=== PATIENT | female | born 1955 | race Caucasian/White ===

== ENCOUNTER 2018-11-11 15:05 | Emergency (ER) | payer OTHER ==
[~2018-11-11] VITALS: Ht 160 cm; Wt 67.1 kg
[2018-11-11 15:05] VITALS: BP 132/93
[~2018-11-11 15:05] MED LIST: IBUP-974 PO
--- NOTE | 2018-11-11 15:05 | NUR ---
PATIENT AMBULATED TO ER BED 11.
--- NOTE | 2018-11-11 15:18 | NUR ---
C/O COUGH FOR 24 DAYS THAT HAS GOTTEN WORSE IN THE LAST 2 DAYS. LUNG SOUNDS CLEAR BILAT, O2 SAT 99% RA DENIES N/V/D; SKIN IS PINK/WARM/DRY; AAOX4 WITH EVEN AND STEADY GAIT; LUNGS CLEAR BL; HR TACHY AT 115, ERMD AWARE. PATIENT STATES GENERALIZED PAIN OF 10/10 AT THIS TIME; VSS; PATIENT POSITIONED FOR COMFORT; HOB ELEVATED; BEDRAILS UP X1; BED DOWN. ER MD MADE AWARE OF PT STATUS.
--- NOTE | 2018-11-11 15:18 | NUR ---
PT PLACED ON INSTITUTION DIRECTOR
--- NOTE | 2018-11-11 15:25 | NUR ---
ERMD AT BEDSIDE
[2018-11-11] MEDS ORDERED: ACETAMIN/CODEINE 120/12MG-5ML 5 ML UDC PO ONE (15:30)
--- NOTE | 2018-11-11 15:39 | NUR ---
XRAY AT BEDSIDE
[2018-11-11] MEDS ORDERED: predniSONE 20 MG TAB PO ONE (16:10)
[2018-11-11 16:30] VITALS: BP 128/90
--- NOTE | 2018-11-11 16:30 | NUR ---
Patient discharged with v/s stable. Written and verbal after care instructions given and explained. Patient alert, oriented and verbalized understanding of instructions. Ambulatory with steady gait. All questions addressed prior to discharge. ID band removed. Patient advised to follow up with PMD. Rx of PREDNISONE, SUDAFED AND GUAIATUSSIN given. Patient educated on indication of medication including possible reaction and side effects. Opportunity to ask questions provided and answered.
== END 2018-11-11 16:30 | disposition home or self-care (01) ==
LOC: MED 15:05
DX: J20.9 Acute bronchitis, unspecified (principal); R11.0 Nausea; Z79.899 Other long term (current) drug therapy; Z88.2 Allergy status to sulfonamides
CPT/HCPCS: 71045; 99283; J7512; Q0092

== ENCOUNTER 2019-01-14 01:50 | Emergency (ER) | payer OTHER ==
[~2019-01-14] VITALS: Ht 160 cm; Wt 68.0 kg
[2019-01-14 01:53] VITALS: BP 124/74
--- NOTE | 2019-01-14 01:56 | NUR ---
TO LOBBY A/W BED, AMBULATORY
--- NOTE | 2019-01-14 02:39 | NUR ---
PT TAKEN TO BED 10.
[2019-01-14] MEDS ORDERED: DIAZEPAM 5 MG TAB PO ONE (02:55)
[2019-01-14] MEDS ORDERED: KETOROLAC 30 MG/ML VIAL IM ONE (02:55)
--- NOTE | 2019-01-14 02:55 | NUR ---
63 YO F BIB SELF AND PRESENTS TO ED C/O 04/23 RIGHT BURNING SHOULDER PAIN THAT RADIATES INTO MIDDLE BACK X 10 DAYS. PT DENIES ANY RECENT TRAUMA OR INJURY. PT IS UNABLE TO ABDUCT ARM. -- FINGER ROM IN TACT. CAP REFILL BRISK, LESS THAN 3 SECONDS. RADIAL PULSES EQUAL, STRONG. -- PT APPEARS CALM. IS COOPERATIVE, ANSWERS QUESTIONS APPROPRIATELY, BEHAVIOR APPROPRIATE. -- SKIN PINK, WARM, DRY. BREATHING EVEN, UNLABORED. PMH-- DENIES RX-- NORCO AND TYLENOL AT 2200
--- NOTE | 2019-01-14 03:05 | NUR ---
PT RECEIVED 5 MG PO VALIUM AND 30 MG IM TORADOL FOR 10/10 RIGHT SHOULDER PAIN. WILL CONTINUE TO MONITOR FOR EFFECTIVENESS.
--- NOTE | 2019-01-14 03:25 | NUR ---
SLING APPLIED BY EMT. TEACHING PROVIDED AND REINFORCED BY RN AND EMT.
--- NOTE | 2019-01-14 03:30 | NUR ---
PT REPORTS 6/10 SHOULDER PAIN. MEDICATION EFFECTIVE.
[2019-01-14 03:34] VITALS: BP 119/68
--- NOTE | 2019-01-14 03:34 | NUR ---
Patient discharged with v/s stable. Written and verbal after care instructions given and explained. Patient alert, oriented and verbalized understanding of instructions. Ambulatory with steady gait. All questions addressed prior to discharge. ID band removed. Patient advised to follow up with PMD. Rx of Naprosyn and Valium given. Patient educated on indication of medication including possible reaction and side effects. Opportunity to ask questions provided and answered.
== END 2019-01-14 03:34 | disposition home or self-care (01) ==
LOC: MED 01:50
DX: M75.101 Unspecified rotator cuff tear or rupture of right shoulder, not specified as traumatic (principal); Z88.2 Allergy status to sulfonamides; Z79.1 Long term (current) use of non-steroidal anti-inflammatories (NSAID)
CPT/HCPCS: 73030; 96372; 99283; J1885; Q0092

== ENCOUNTER 2019-07-22 11:48 | Emergency (ER) | payer OTHER ==
[~2019-07-22] VITALS: Ht 152.4 cm; Wt 69.9 kg
[2019-07-22 11:57] VITALS: BP 141/77
--- NOTE | 2019-07-22 12:02 | NUR ---
Patient ambulated to bed 4. RN evaluating patient at bedside.
--- NOTE | 2019-07-22 12:05 | NUR ---
Dr. Julian is evaluating the patient at bedside.
[2019-07-22] MEDS ORDERED: KETOROLAC 60 MG/2 ML VIAL IM ONE (12:15)
--- NOTE | 2019-07-22 12:15 | NUR ---
64/F presents to ED with complaints of lower back pain x3 months. Patient states she has had on going back pain intermentlly. Denies injury or fall. Pt c/o 10/10 lower back pain radiating down right leg. Pt also c/o tingling sensation to right leg when she has severe pain. Patient noted with facial grimacing and limited ROM. Pt c/o worsening pain with changing positions. Pt placed in a position of comfort, offered patient a blanket. All needs addressed.
--- NOTE | 2019-07-22 12:52 | NUR ---
Pt expresses feeling better, pain reduced to 4/10. Pt sitting upright in bed, smiling and requesting to go home. Pt states "I feel better and would like to go home and rest." Dr. Julian made aware.
--- NOTE | 2019-07-22 13:05 | NUR ---
NADR ,PAIN 11/21.
[2019-07-22 13:08] VITALS: BP 134/91
--- NOTE | 2019-07-22 13:08 | NUR ---
Patient discharged with v/s stable pain at 11/21. Written and verbal after care instructions given and explained regarding chronic back pain. Patient verbalized understanding. Ambulatory with steady gait. All questions addressed prior to discharge. Advised to follow up with PMD.
== END 2019-07-22 13:08 | disposition home or self-care (01) ==
LOC: MED 11:48
DX: M54.5 Low back pain (principal); M54.2 Cervicalgia; G89.29 Other chronic pain; R03.0 Elevated blood-pressure reading, without diagnosis of hypertension; Z79.899 Other long term (current) drug therapy; Z88.2 Allergy status to sulfonamides
CPT/HCPCS: 96372; 99283; J1885

== ENCOUNTER 2019-08-21 11:15 | Emergency (ER) | payer OTHER ==
[~2019-08-21] VITALS: Ht 152.4 cm; Wt 68.5 kg
[2019-08-21 11:22] VITALS: BP 120/66
--- NOTE | 2019-08-21 11:30 | NUR ---
PT AMB TO BED 11 WITH STEADY GAIT
--- NOTE | 2019-08-21 11:41 | NUR ---
64 Y/O FEMALE C/O LT EAR PAIN X 4 DAYS. PAIN RADIATES TO LT JAW. DENIES DRAINAGE OR FEVER. 8/10 CONSTANT ACHING. STATES NO DIFFICULTY HEARING. TOOK TYLENOL AT 0600 WITH SLIGHT PAIN RELIEF. RR EVEN AND UNLABORED. PT LAYING IN BED, X 1 SIDE RAIL RAISED. BED LOCKED AND IN LOW POSITION. VSS. MEDHX: DENIES ALLERGIES: SULFA
--- NOTE | 2019-08-21 11:48 | NUR ---
DR MEDRANO AT BEDSIDE EXAMINING PT
[2019-08-21 11:53] VITALS: BP 120/66
== END 2019-08-21 11:54 | disposition home or self-care (01) ==
LOC: MED 11:15
DX: H66.92 Otitis media, unspecified, left ear (principal); Z79.1 Long term (current) use of non-steroidal anti-inflammatories (NSAID); Z88.2 Allergy status to sulfonamides
CPT/HCPCS: 99283

== ENCOUNTER 2022-04-09 20:51 | Emergency (ER) | payer OTHER ==
[~2022-04-09] VITALS: Ht 154.9 cm; Wt 72.1 kg
[2022-04-09 21:15] VITALS: BP 140/90
--- NOTE | 2022-04-09 21:18 | NUR ---
TO LOBBY A/W BED AMBULATORY
--- NOTE | 2022-04-09 21:28 | NUR ---
PT AMBULATED TO BED #6
--- NOTE | 2022-04-09 21:29 | NUR ---
Patient being evaluated by physician at bedside.
[2022-04-09] MEDS ORDERED: PANTOPRAZOLE 40 MG INJ VIAL IVP ONE (21:40)
[2022-04-09] MEDS ORDERED: NACL 0.9% 1,000 ML IV SCH (21:40)
[2022-04-09] MEDS ORDERED: MORPHINE SULFATE 2 MG/ML SYR IVP ONE (21:40)
[2022-04-09] MEDS ORDERED: ONDANSETRON 4 MG/2 ML VIAL IVP ONE (21:40)
--- NOTE | 2022-04-09 21:50 | NUR ---
IV ESTABLISHED 20G RIGHT AC
[2022-04-09 21:57] LABS: BASOPHILS % (AUTO) 0.4 % (0.0-2.0); EOSINOPHILS % (AUTO) 0.2 % (0.0-4.0); HEMATOCRIT 38.6 % (36-48); HEMOGLOBIN 12.9 g/dL (12.0-16.0); LYMPHOCYTES # (AUTO) 2.8 K/uL (2.5-16.5); LYMPHOCYTES % (AUTO) 22.4 % (20.5-51.1); MEAN CORPUSCULAR HEMOGLOBIN 29 pg (27-31); MEAN CORPUSCULAR HGB CONC 33 g/dL (33-37); MONOCYTES % (AUTO) 8.1 % (1.7-9.3); NEUTROPHILS # (AUTO) 8.5 K/uL (1.8-7.7); NEUTROPHILS % (AUTO) 68.9 % (42.2-75.2); PLATELET COUNT (AUTO) 512 K/uL (140-450); RED BLOOD CELL COUNT(AUTO) 4.49 MIL/uL (4.20-5.40); RED CELL DISTRIBUTION WIDTH 14.5 % (11.6-13.7); WHITE BLOOD COUNT (AUTO) 12.4 K/uL (4.8-10.8)
[2022-04-09 22:13] LABS: ALBUMIN 3.7 g/dL (3.4-5.0); ANION GAP 12.4 (8-16); CARBON DIOXIDE 27.6 mmol/L (21-32); CREATININE 0.7 mg/dL (0.6-1.3); TOTAL BILIRUBIN 0.2 mg/dL (0.0-1.0)
--- NOTE | 2022-04-09 22:30 | NUR ---
66/F BIB SELF C/C ABD PAIN 10/10 [id number]. PER PATIENT SHE ATE RICE AND MILK AND THE PAIN STARTED. PATIENT TOOK OMEPRAZOLE, CARBONATED DRINK, AND ZOFRAN AT HOME PRIOR TO ARRIVAL WITH NO RELIEF. ANDREWETMckenna STATED SHE FEELS LIKE THERE IS PRESSURE "PULLING" MY STOMACH. PATIETN IS GURDING ABDOMEN. RR APPEAR TO BE EVEN AND UNLABORED. PATIENT PLACED IN GOWN. PATIENT BED LOW AND LOCKED. SERA SIDE RAILS FOR SAFETY. ALL NEEDS MET. PMHX OARTHRITIS ALLERGIES SULFA
[2022-04-10] MEDS ORDERED: PANT40EC PO (05:41)
--- NOTE | 2022-04-10 06:07 | NUR ---
IV removed, catheter intact and site benign. Applied folded 4x4 gauze and tape to stop bleeding.
[2022-04-10 06:08] VITALS: BP 137/85
--- NOTE | 2022-04-10 06:08 | NUR ---
Patient discharged with v/s stable. Written and verbal after care instructions given ABD PAIN and explained. Patient alert, oriented and verbalized understanding of instructions. Ambulatory with steady gait. All questions addressed prior to discharge. ID band removed. Patient advised to follow up with PMD. Rx of PROTONIX given.
--- NOTE | 2022-04-10 06:10 | NUR ---
The patient's care was reviewed and supervised by Yumiko Martin RN.
== END 2022-04-10 06:08 | disposition home or self-care (01) ==
LOC: MED 20:51
DX: R10.84 Generalized abdominal pain (principal); R11.2 Nausea with vomiting, unspecified; Z79.899 Other long term (current) drug therapy; Z88.2 Allergy status to sulfonamides; Z87.442 Personal history of urinary calculi
CPT/HCPCS: 74176; 76705; 80053; 83690; 84484; 85025; 93005; 96361; 96374; 96375; 99285; C9113; J2270; J2405; Q0092; J7030

== ENCOUNTER 2022-06-17 19:35 | Emergency (ER) | payer OTHER ==
[~2022-06-17] VITALS: Ht 160 cm; Wt 71.2 kg
[~2022-06-17 19:35] MED LIST changes: +PANT40EC PO
[2022-06-17 20:06] VITALS: BP 120/86
--- NOTE | 2022-06-17 20:09 | NUR ---
TO LOBBY A/W BED AMBULATORY WITH ASSIST
--- NOTE | 2022-06-17 21:00 | NUR ---
SEEN AND EXAMINED BY MELVIN
[2022-06-17] MEDS ORDERED: KETOROLAC 30 MG/ML VIAL IM ONE (21:05)
[2022-06-17] MEDS ORDERED: TRAM-748 PO (21:20)
[2022-06-17] MEDS ORDERED: NAPR-54 PO (21:20)
--- NOTE | 2022-06-17 21:20 | NUR ---
MEDICATED PER ERMDS ORDER , TOLERATED WELL.
[2022-06-17 21:52] VITALS: BP 120/79
--- NOTE | 2022-06-17 21:52 | NUR ---
Patient discharged with v/s stable. Written and verbal after care instructions given and explained. Patient alert, oriented and verbalized understanding of instructions. Ambulatory with steady gait. All questions addressed prior to discharge. ID band removed. Patient advised to follow up with PMD. Rx of NAPROSYN, TRAMADOL given. Patient educated on indication of medication including possible reaction and side effects. Opportunity to ask questions provided and answered.
== END 2022-06-17 21:52 | disposition home or self-care (01) ==
LOC: MED 19:35
DX: M25.462 Effusion, left knee (principal); M25.461 Effusion, right knee; Z88.2 Allergy status to sulfonamides
CPT/HCPCS: 73562; 96372; 99283; J1885

== ENCOUNTER 2022-11-27 23:12 | Emergency (ER) | payer MEDICARE, OTHER ==
[~2022-11-27] VITALS: Ht 160 cm; Wt 75.3 kg
[~2022-11-27 23:12] MED LIST changes: +NAPR-54 PO; +TRAM-748 PO
[2022-11-27 23:25] VITALS: BP 147/97
--- NOTE | 2022-11-27 23:36 | NUR ---
UA collected and sent to lab
[2022-11-27] MEDS ORDERED: ONDANSETRON 4 MG ODT PO ONE (23:40)
[2022-11-27] MEDS ORDERED: DICYCLOMINE HCL LIQUID 20 MG, ALUMINUM HYD/MAG/SIMETHICONE 30 ML, LIDOCAINE VISCOUS 2% ... PO ONE ×3 (23:40)
--- NOTE | 2022-11-27 23:43 | NUR ---
PT TAKEN TO BED 9
[2022-11-27] MEDS ORDERED: DICYCLOMINE HCL LIQUID 10 MG/5 ML UDC ONE (23:46)
[2022-11-27] MEDS ORDERED: ALUMINUM HYD/MAG/SIMETHICONE 30 ML UDC ONE (23:46)
[2022-11-28] MEDS ORDERED: KETOROLAC 30 MG/ML VIAL IM ONE
--- NOTE | 2022-11-28 | NUR ---
Patient resting in bed, A/Ox4, chest rise and fall symmetrical, no c/o pain or s/s of distress, on monitor, at bedside.
[2022-11-28] MEDS ORDERED: MAG-27 PO (01:30)
--- NOTE | 2022-11-28 01:40 | NUR ---
Patient resting in bed, A/Ox4, chest rise and fall symmetrical, no c/o pain or s/s of distress, on monitor, at bedside.
[2022-11-28 01:49] VITALS: BP 131/69
== END 2022-11-28 01:46 | disposition home or self-care (01) ==
LOC: MED 23:12
DX: R10.13 Epigastric pain (principal); Z98.890 Other specified postprocedural states; Z79.899 Other long term (current) drug therapy; Z79.1 Long term (current) use of non-steroidal anti-inflammatories (NSAID); Z79.891 Long term (current) use of opiate analgesic; Z88.2 Allergy status to sulfonamides
CPT/HCPCS: 96372; 99283; J1885; Q0162

== ENCOUNTER 2023-09-26 16:58 | Emergency (ER) | payer MEDICARE, OTHER ==
[~2023-09-26] VITALS: Ht 160 cm; Wt 72.6 kg
[~2023-09-26 16:58] MED LIST changes: +MAG-27 PO
[2023-09-26 17:14] VITALS: BP 126/71; PULSE 97; RESP 18; TEMP 96.8; O2SAT 97
[2023-09-26 19:17] VITALS: BP 122/70; PULSE 88; RESP 18; TEMP 98; O2SAT 99
== END 2023-09-26 19:17 | disposition home or self-care (01) ==
LOC: MED 16:58
DX: M79.662 Pain in left lower leg (principal); Z79.899 Other long term (current) drug therapy
CPT/HCPCS: 93971; 99284; Q0092